=== PATIENT | male | born 1935 | race Asian ===

== ENCOUNTER 2018-01-23 17:34 | Emergency (ER) | payer OTHER ==
[~2018-01-23] VITALS: Ht 162.6 cm; Wt 59.1 kg
[~2018-01-23 17:34] MED LIST: ASPIR LOW81 MG PO; CHOLESTYRAMINE1 PO1; LEXAPRO5 M1 PO; MOTRIN800 MG PO; ZOCOR10 MG PO
[2018-01-23 17:46] VITALS: Ht 162.6 cm; Wt 59.1 kg
[2018-01-23 19:46] LABS: BASOPHIL % 1.1 % (0-2); PLATELET COUNT 317 x10^3mcL (130-400); RED CELL DISTRIBUTION WIDTH 12.3 % (11.5-14.5)
[2018-01-23 20:02] LABS: CK-MB < 0.5 ng/mL (0-3.6); CREATINE KINASE 169 U/L (39-308)
[2018-01-23 20:15] LABS: CALCIUM 8.9 mg/dL (8.5-10.1); CARBON DIOXIDE 24.5 mmol/L (21-32); CHLORIDE SERUM 94 mmol/L (98-107); CREATININE SERUM 0.9 mg/dL (0.7-1.3); GLUCOSE SERUM 102 mg/dL (74-106); POTASSIUM SERUM 4.2 mmol/L (3.5-5.1); SODIUM SERUM 129 mmol/L (136-145)
[2018-01-23 20:26] LABS: ALKALINE PHOSPHATASE 89 U/L (46-116); ALT/SGPT 37 U/L (16-63); AST/SGOT 29 U/L (15-37); BILIRUBIN TOTAL 0.4 mg/dL (0.20-1.00)
[2018-01-23 20:28] LABS: ALBUMIN 2.9 g/dL (3.4-5.0)
[2018-01-23 22:33] VITALS: BP 149/84
== END 2018-01-23 22:33 | disposition home or self-care (01) ==
LOC: ED 17:34
PROVIDERS: Specialist
DX: J02.9 Acute pharyngitis, unspecified (principal); E87.1 Hypo-osmolality and hyponatremia; I10 Essential (primary) hypertension; E78.5 Hyperlipidemia, unspecified
CPT/HCPCS: 36600; 83880; J7030; Q0092

== ENCOUNTER 2018-06-14 20:55 | Emergency (ER) | payer OTHER ==
[~2018-06-14] VITALS: Ht 162.6 cm; Wt 59.2 kg
[2018-06-14 21:21] VITALS: BP 143/77; Ht 162.6 cm; Wt 59.2 kg
== END 2018-06-14 23:24 | disposition left against medical advice (07) ==
LOC: ED 20:55
DX: Z53.21 Procedure and treatment not carried out due to patient leaving prior to being seen by health care provider (principal)

== ENCOUNTER 2018-10-04 16:03 | Inpatient (IN) | payer OTHER ==
[~2018-10-04] VITALS: Ht 154.9 cm; Wt 58.1 kg
[2018-10-04 17:39] LABS: CALCIUM 9.3 mg/dL (8.5-10.1); CARBON DIOXIDE 29.4 mmol/L (21-32); CHLORIDE SERUM 98 mmol/L (98-107); GLUCOSE SERUM 138 mg/dL (74-106); SODIUM SERUM 134 mmol/L (136-145)
[2018-10-04 17:44] LABS: ALBUMIN 3.9 g/dL (3.4-5.0); ALKALINE PHOSPHATASE 70 U/L (46-116); ALT/SGPT 25 U/L (16-63); AST/SGOT 24 U/L (15-37); BILIRUBIN TOTAL 0.4 mg/dL (0.20-1.00); TOTAL PROTEIN, SERUM 8.2 g/dL (6.4-8.2)
[2018-10-04 17:51] LABS: BASOPHIL % 0.3 % (0-2); PLATELET COUNT 213 x10^3mcL (130-400); RED CELL DISTRIBUTION WIDTH 13.4 % (11.5-14.5)
[2018-10-04 20:31] VITALS: BP 145/42
[2018-10-04 20:35] VITALS: Ht 154.9 cm; Wt 58.1 kg
[2018-10-05 05:44] VITALS: BP 112/59
[2018-10-05 06:03] LABS: BASOPHIL % 0.4 % (0-2); PLATELET COUNT 211 x10^3mcL (130-400)
[2018-10-05 06:56] LABS: ALBUMIN 3.5 g/dL (3.4-5.0); ALKALINE PHOSPHATASE 65 U/L (46-116); ALT/SGPT 22 U/L (16-63); AST/SGOT 21 U/L (15-37); BILIRUBIN TOTAL 0.4 mg/dL (0.20-1.00); CALCIUM 9.4 mg/dL (8.5-10.1); CARBON DIOXIDE 28.2 mmol/L (21-32); CHLORIDE SERUM 104 mmol/L (98-107); CREATININE SERUM 0.9 mg/dL (0.7-1.3); GLUCOSE SERUM 88 mg/dL (74-106); POTASSIUM SERUM 4.5 mmol/L (3.5-5.1); SODIUM SERUM 138 mmol/L (136-145); TOTAL PROTEIN, SERUM 7.5 g/dL (6.4-8.2)
[2018-10-05 08:36] VITALS: BP 134/76
[2018-10-05] MEDS ORDERED: MECLIZINE HYD12.5 MG PO (14:00)
[2018-10-05 14:53] VITALS: BP 134/76
== END 2018-10-05 17:16 | disposition home or self-care (01) | DRG 149 ==
LOC: ED 16:03 → DU 19:12
PROVIDERS: Internal Medicine
DX: H81.10 Benign paroxysmal vertigo, unspecified ear (principal); R07.89 Other chest pain; I10 Essential (primary) hypertension; E78.5 Hyperlipidemia, unspecified; Z87.891 Personal history of nicotine dependence
CPT/HCPCS: 83880; J8597; Q0092